=== PATIENT | male | born 1970 | race Caucasian/White ===

== ENCOUNTER 2016-10-26 20:43 | Emergency (ER) | payer BC ==
--- NOTE | ~2016-10-26 | ER ---
PATIENT'S NAME: SCOTT BARTLETT [facility] AGE: 46 Y [address] ROOM: [place] [address] LOCATION: [facility] ADMIT DATE: 10/26/2016 ER/Outpatient Report DISCHARGE DATE: 10/26/2016 FAMILY PHYSICIAN: Physician, Unknown ATTENDING PHYSICIAN: Terrence Khan Time of arrival: 3 hours. Time of evaluation: 4 hours. CHIEF COMPLAINT: Chest pain. HISTORY OF PRESENT ILLNESS: The patient is a 46-year-old male, who presents to the emergency department today with a chief complaint of chest pain. He reports he was drinking quite heavily last night. Tonight, he developed some left-sided chest pain. He reports it is a pulling-type pain. Denies any shortness of breath. No diaphoresis. No nausea or vomiting. No weakness. It does not radiate to his back. It is not sudden onset. It is currently 4/10 in severity. PAST MEDICAL HISTORY: Hypertension, gastroesophageal reflux disease, and anxiety. PAST SURGICAL HISTORY: Appendectomy and cholecystectomy. SOCIAL HISTORY: The patient smokes socially. Drinks alcohol daily at least 1 to 2 drinks and binges occasionally. No drugs. ALLERGIES: PENICILLIN. MEDICATIONS: 1. Effexor. 2. Wellbutrin. 3. Zantac. PRIMARY CARE DOCTOR: In [place]. REVIEW OF SYSTEMS: All systems are reviewed by myself and are negative with the exception of those discussed in HPI and past medical history. PATIENT'S NAME: SCOTT BARTLETT [facility] AGE: 46 Y [address] ROOM: [place] [address] LOCATION: [facility] ADMIT DATE: 10/26/2016 ER/Outpatient Report DISCHARGE DATE: 10/26/2016 FAMILY PHYSICIAN: Physician, Unknown ATTENDING PHYSICIAN: Terrence Khan PHYSICAL EXAMINATION: VITAL SIGNS: Weight 104 kg, blood pressure 158/94, pulse 73, respiratory rate 16, temperature 96.8, and oxygen saturation 98% on room air. GENERAL: The patient is a 46-year-old male, who appears stated age, in no acute distress at this time. HEENT: Head is normocephalic, atraumatic. Pupils are equal, round, and reactive to light. Extraocular motions are intact. NECK: Supple. There is no nuchal rigidity. CARDIOVASCULAR: Regular rate and rhythm. No murmurs, rubs, or gallops. LUNGS: Clear to auscultation bilaterally. No wheezes, rales, or rhonchi. ABDOMEN: Soft, nontender, and nondistended. No rebound, rigidity, or guarding. MUSCULOSKELETAL: The patient moves all 4 extremities. SKIN: Warm and dry. There are no rashes or lesions noted. LABORATORY DATA AND X-RAYS: Labs and x-rays are obtained. EKG was obtained, is interpreted by myself at 2057 hours. It shows sinus rhythm with a rate of 67. Normal axis. Normal interval. No ST elevation, ST depression, or T-wave inversions. CBC is normal. CMP is unremarkable. LFTs are normal. A two-view chest x-ray shows no acute process. Coags are normal. Magnesium is normal. Lipase is normal. Cardiac enzymes are normal. A 2-hour EKG was obtained at 2316 hours is interpreted by myself shows sinus rhythm with a rate of 64. Normal axis. Normal interval. No ST elevation, ST depression or T-wave inversions. Cardiac enzymes are normal. IMPRESSION: 1. Chest pain, unclear etiology. 2. Initial visit. EMERGENCY DEPARTMENT COURSE: The patient was brought back to the examination room. Seen and evaluated by myself. An IV was established. Laboratory analysis and imaging were obtained as described above. The patient was given a liter of normal saline IV as well as 4 mg of Zofran IV and a GI cocktail p.o. This has resulted in improvement of the patient's symptoms. I have discussed the results with the patient. He is without further questions at this time. I have asked he follows up with his primary care doctor. He does report he has a stress test already scheduled. DISPOSITION: The patient was discharged to home in good condition. PATIENT'S NAME: SCOTT BARTLETT [facility] AGE: 46 Y [address] ROOM: [place], [place] [address] LOCATION: [facility] ADMIT DATE: 10/26/2016 ER/Outpatient Report DISCHARGE DATE: 10/26/2016 FAMILY PHYSICIAN: Physician, Unknown ATTENDING PHYSICIAN: Terrence Khan DO CECELIA MCCLOUD/jamel /[id number] d: 10/27/16 0011 t: 10/27/16 1913, OUTPATIENT REPORT
[2016-10-26 21:13] LABS: BASOPHIL # 0.1 K/uL (0.0-0.2); BASOPHIL % 0.9 %; EOSINOPHIL # 0.2 K/uL (0.0-0.5); EOSINOPHIL % 2.2 %; HEMATOCRIT 43.5 % (37.0-53.0); HEMOGLOBIN 15.1 g/dL (12.0-17.0); IMMATURE GRANULOCYTE % 0.1 %; LYMPHOCYTE # 1.9 K/uL (0.8-4.0); LYMPHOCYTE % 27.5 %; MCH 30.1 pg (27.0-34.0); MCHC 34.7 gm/dL (32.0-36.5); MCV 86.8 fl (83.0-98.0); MONOCYTE # 0.6 K/uL (0.0-1.0); MONOCYTE % 9.1 %; MPV 9.7 fl (9.4-12.4); NEUTROPHIL # (ANC) 4.2 K/uL (1.4-9.0); NEUTROPHIL % 60.2 %; NRBC % 0 /100WBC (0-0.00); PLATELET COUNT 237 K/uL (150-450); RBC 5.01 M/uL (4.00-6.00); RDW-CV 13.8 % (11.9-14.6); WBC 6.9 K/uL (4.0-11.0)
[2016-10-26 21:22] LABS: INR - (THERAPEUTIC) 0.96 (0.92-1.07); PROTIME 10.1 SECONDS (9.8-11.4); PTT 25 SECONDS (25-32)
[2016-10-26 21:33] LABS: ALBUMIN 3.9 gm/dL (3.5-5.0); ALK PHOS 56 IU/L (33-138); ALT 38 IU/L (12-78); ANION GAP 12.5 (10.0-19.0); AST 17 IU/L (10-40); BLOOD UREA NITROGEN 18 mg/dL (6-24); CALCIUM 8.7 mg/dL (8.5-10.5); CHLORIDE 104 mMol/L (96-110); CO2 26 mMol/L (22-32); CPK 144 IU/L (35-332); CREATININE 1.2 mg/dL (0.6-1.3); POTASSIUM 3.5 mMol/L (3.7-5.1); SODIUM 139 mMol/L (135-145); TOTAL BILIRUBIN 0.6 mg/dL (0.0-1.5); TOTAL PROTEIN 6.7 g/dL (6.0-8.4)
[2016-10-26 23:22] LABS: CPK 124 IU/L (35-332)
== END 2016-10-26 23:37 | disposition disaster alternative care site (69) ==
LOC: GMED 20:43
PROVIDERS: Emergency Medicine
DX: R07.9 Chest pain, unspecified (principal); I10 Essential (primary) hypertension; F41.9 Anxiety disorder, unspecified; K21.9 Gastro-esophageal reflux disease without esophagitis; Z88.0 Allergy status to penicillin; Z90.49 Acquired absence of other specified parts of digestive tract; Z79.899 Other long term (current) drug therapy
CPT/HCPCS: J1885; J2405; J7030